=== PATIENT | male | born 1990 | race Caucasian/White ===

== ENCOUNTER 2019-02-11 15:57 | Emergency (ER) | payer OTHER ==
--- NOTE | 2019-02-11 16:13 | ER Report ---
History and Physical Time Seen By MD: 16:07 Hx. of Stated Complaint: Pain to lower back started last night HPI/ROS CHIEF COMPLAINT: Low back pain HISTORY OF PRESENT ILLNESS: This is a 28-year-old male who presents to the emergency department for low back pain. Patient states that yesterday he had a relatively light day at work, no injuries that he can recall however last night developed some lower back pain continued to get worse through the evening and today, [facility] to [facility] for an evaluation. Denies numbness or tingling, no loss of bowel or bladder no recent fevers. REVIEW OF SYSTEMS: Respiratory: No cough, no dyspnea. Cardiovascular: No chest pain, no palpitations. Gastrointestinal: No vomiting, no abdominal pain. Musculoskeletal: As above. Allergies: Coded Allergies: No Known Drug Allergies (Unverified , 02/11/19) Home Meds Active Scripts Cyclobenzaprine Hcl (CYCLOBENZAPRINE HCL) 10 Mg Tablet, 5-10 MG PO TID PRN for MUSCLE SPASMS, #9 TAB Prov:KAREN MURGUIA FOLLOW UP CLERK- 02/11/19 Past Medical/Surgical History The patient has a past medical and surgical history of insomnia, low back pain, right shoulder surgery. Reviewed Nurses Notes: Yes Hx Substance Use Disorder: No Hx Alcohol Use: Yes (daily 1-2 drinks) Constitutional Vital Sign - Last 24 Hours 02/11/19 02/11/19 02/11/19 02/11/19 16:01 16:30 17:00 17:30 Temp 98.1 Pulse 68 64 69 67 Resp 16 B/P (MAP) 121/79 112/75 (87) 110/74 (86) 105/73 (84) Pulse Ox 93 91 92 94 O2 Delivery Room Air 02/11/19 18:00 Pulse 78 B/P (MAP) 100/77 (85) Pulse Ox 92 Physical Exam General Appearance: The patient is alert, has no immediate need for airway protection and no current signs of toxicity. Eyes: Pupils equal and round no injection. Respiratory: Chest is non tender, lungs are clear to auscultation. Cardiac: regular rate and rhythm. Gastrointestinal: Abdomen is soft and non tender, no masses, bowel sounds normal. Musculoskeletal: Neck: Neck is supple and non tender. Mild lumbar discomfort with palpation, left lower back muscles firm with palpation when compared to right lower back, no crepitus or obvious deformities. No bruising. Increased low back pain with right and left straight leg raise more significant with the right leg. Extremities have full range of motion and are non tender. Skin: No rashes or lesions. DIFFERENTIAL DIAGNOSIS: After history and physical exam differential diagnosis was considered for back strain, muscle spasm, ruptured disc, subluxation, radiculopathy. Medical Decision Making EKG/Imaging Imaging PATIENT NAME: Qamar Maria : 1990 MR: [id number] V: [id number] EXAM DATE: [id number] ORDERING PHYSICIAN: KAREN MURGUIA TECHNOLOGIST: Location: [facility] Patient: Qamar Maria : 1990 Visit/Account:[id number] Date of Sevice: 02/11/2019 Lumbar spine Indication: Low back pain. Injury 2 weeks ago. Comparison: None available FINDINGS: 5 views of the lumbar spine were obtained. There are 5 lumbar type vertebral bodies. On the frontal view, there is a slight levocurvature centered at L3 which may be positional. On the lateral views, there is 5 mm of retrolisthesis of L5 upon S1. Alignment is otherwise maintained. No compression fracture. Intervertebral disc spaces are maintained. Oblique projections are unremarkable. IMPRESSION: 1. No acute fracture of the lumbar spine. 2. Retrolisthesis of L5 upon S1 which measures 5 mm. Report Dictated By: Fletcher Cobian at 02/11/2019 5:40 PM Report E-Signed By: Fletcher Cobian at 02/11/2019 5:43 PM WSN:[id number] ED Course/Re-evaluation ED Course The patient was admitted to room. A history and physical obtained. Differential diagnoses were considered. Patient was given 800 mg ibuprofen with some relief of his symptoms. An x-ray of the lumbar spine negative for any acute abnormalities. Results were reviewed with the patient. Pain likely from lumbar strain. I did send the patient home with a prescription for physical therapy as well as a prescription for Flexeril for muscle spasms. Patient will follow-up with his [facility] for reevaluation. Decision to Disposition Date: Feb 11, 2019 Decision to Disposition Time: 18:08 Depart Departure Latest Vital Signs Vital Signs Date Time Temp Pulse Resp B/P (MAP) Pulse Ox O2 Delivery O2 Flow Rate FiO2 02/11/19 18:00 78 100/77 (85) 92 02/11/19 16:01 98.1 16 Room Air Impression: Primary Impression: Lower back pain Condition: Improved Disposition: HOME OR SELF-CARE New Scripts Cyclobenzaprine Hcl (CYCLOBENZAPRINE HCL) 10 Mg Tablet 5-10 MG PO TID PRN for MUSCLE SPASMS, #9 TAB Prov: KAREN MURGUIA-MICHAEL 02/11/19 Patient Instructions: Acute Low Back Pain (ED) Additional Instructions: Take ibuprofen 800 mg every 8 hours as needed for pain. Take Flexeril as prescribed for muscle spasms. Follow-up with physical therapy for back pain. Get plenty of rest. Drink plenty of water. Return to the emergency department for any other concerns or worsening symptoms. Problem Qualifiers Primary Impression: Lower back pain Chronicity: acute Back pain laterality: bilateral Sciatica presence: without sciatica Qualified Codes: M54.5 - Low back pain KAREN MURGUIA-BC Feb 11, 2019 16:13
[2019-02-11] MEDS ORDERED: IBUPROFEN 800 MG TAB PO ONE (16:30)
--- NOTE | 2019-02-11 17:47 | RADIOLOGY IMAGING REPORT ---
[place] [facility] [place] NAME: Qamar Maria : 1990 MR: [id number] V: [id number] EXAM DATE: ORDERING PHYSICIAN: KAREN MURGUIA TECHNOLOGIST: Location: [facility] - [place] Patient: Qamar Maria : 1990 Visit/Account:[id number] Date of Sevice: 02/11/2019 Lumbar spine Indication: Low back pain. Injury 2 weeks ago. Comparison: None available FINDINGS: 5 views of the lumbar spine were obtained. There are 5 lumbar type vertebral bodies. On the frontal view, there is a slight levocurvature centered at L3 which may be positional. On the l ateral views, there is 5 mm of retrolisthesis of L5 upon S1. Alignment is otherwise maintained. No compression fracture. Intervertebral disc spaces are maintained. Oblique projections are unremarkable. IMPRESSION: 1. No acute fracture of the lumbar spine. 2. Retrolisthesis of L5 upon S1 which measures 5 mm. Report Dictated By: Fletcher Cobian at 02/11/2019 5:40 PM Report E-Signed By: Fletcher Cobian at 02/11/2019 5:43 PM WSN:[id number]
[2019-02-11 18:00] VITALS: BP 100/77
[2019-02-11] MEDS ORDERED: CYCL10TA29 PO (18:15)
== END 2019-02-11 18:20 | disposition home or self-care (01) ==
LOC: ER 16:03
DX: M54.5 Low back pain (principal)
CPT/HCPCS: 72120; 99283

== ENCOUNTER → 2019-03-18 | Outpatient (CLI) | payer OTHER ==
[~2019-03-18] MED LIST: CYCL10TA29 PO
--- NOTE | 2019-03-18 08:59 | RADIOLOGY IMAGING REPORT ---
FACILITY: [facility] - [place] PATIENT NAME: Qamar Maria : 1990 MR: [id number] V: [id number] EXAM DATE: [id number] ORDERING PHYSICIAN: CAITY MAHAJAN TECHNOLOGIST: Location: [facility] - [place], [place] Patient: Qamar Maria : 1990 Visit/Account:[id number] Date of Sevice: 03/18/2019 EXAMINATION: Orbit radiograph single view HISTORY: Pre-MRI screening. COMPARISON: None. FINDINGS: Single view of the orbits is obtained. No radiopaque or metallic foreign bodies of either orbit. Visualized bony structures are intact. IMPRESSION: Orbits are cleared for MRI. Report Dictated By: Michelle Babb MD at 03/18/2019 8:54 AM Report E-Signed By: Michelle Babb MD at 03/18/2019 8:54 AM WSN:[id number]
--- NOTE | 2019-03-18 14:38 | RADIOLOGY IMAGING REPORT ---
FACILITY: [facility] PATIENT NAME: Qamar Maria : 1990 MR: [id number] V: [id number] EXAM DATE: ORDERING PHYSICIAN: CAITY MAHAJAN TECHNOLOGIST: Location: [facility] Patient: Qamar Maria : 1990 Visit/Account:[id number] Date of Sevice: 03/18/2019 MRI right elbow Indication: Right elbow pain. Decreased range of motion. No known injury. Comparison: None available. Technique: Multiplanar multisequence MR images of the right elbow were obtained. Findings: Ligaments: Ulnar collateral ligament is intact, and unremarkable in appearance. Radial collateral ligament is intact, and unremarkable in appearance. Lateral ulnar collateral ligament is intact, and demonstrates no evidence of significant abnormality. Myotendinous structures: Biceps and brachialis tendons are intact and unremarkable. Common extensor origin is intact, and unremarkable. Common flexor origin is intact, and unremarkable. Triceps tendon and insertion demonstrate no evidence of significant abnormality. Neurovascular structures: Ulnar nerve demonstrates unremarkable signal and morphology.. All other neurovascular structures traversing the elbow are intact, and demonstrate with no evidence of significant abnormality. Bones and marrow: There is irregular patchy marrow edema within the radial head and neck with subtle cortical D along the medial margin of the radial head/neck junction on image 13 of the coronal series possibly presenting a subacute/chronic healing fracture. There is no evidence of acute fracture.. Effusion: Minimal amount of fluid seen within the elbow joint. IMPRESSION: 1. Patchy marrow edema and irregularity involving the radial head and neck may relate to subacute/chr onic healing fracture with surrounding marrow edema as described above. 2. Otherwise no acute osseous abnormality or ligamentous abnormality of the elbow. Report Dictated By: Alex Clark MD at 03/18/2019 2:28 PM Report E-Signed By: Alex Clark MD at 03/18/2019 2:32 PM WSN:[email or web address]
== END ==
LOC: MRI 00:36
PROVIDERS: ATTEND Nurse Practitioner Family
DX: M24.521 Contracture, right elbow (principal)
CPT/HCPCS: 70030